=== PATIENT | female | born 1955 | race Caucasian/White ===

== ENCOUNTER 2017-08-30 15:00 | Emergency (ER) | payer OTHER ==
[~2017-08-30] VITALS: Ht 157.5 cm; Wt 57.1 kg
[2017-08-30] MEDS ORDERED: PERCOCET 5/31 TABLET PO (16:22)
[2017-08-30] MEDS ORDERED: ZOFRAN ODT4 MG PO (16:22)
[2017-08-30] MEDS ORDERED: NORCO 5/3251 TABLET PO (16:46)
[2017-08-30 16:57] VITALS: BP 160/75
== END 2017-08-30 17:00 | disposition home or self-care (01) ==
LOC: EME 15:00
DX: S06.0X0A Concussion without loss of consciousness, initial encounter (principal); S00.93XA Contusion of unspecified part of head, initial encounter; S40.011A Contusion of right shoulder, initial encounter; W07.XXXA Fall from chair, initial encounter; Y93.89 Activity, other specified; I10 Essential (primary) hypertension; Z87.442 Personal history of urinary calculi; Z87.891 Personal history of nicotine dependence; Z98.1 Arthrodesis status
CPT/HCPCS: 70450; 73030; 73060; 99281; 99284